=== PATIENT | male | born 1945 | race Caucasian/White ===

== ENCOUNTER → 2017-03-28 | Outpatient (CLI) | payer OTHER ==
--- NOTE | ~2017-03-28 | P ---
[facility] [place] [place] [address] PROCEDURE REPORT Name: NASHCARLOSMARY Black Room #: [facility] [id number] Admission: 03/28/17 Attend Phys: Shaw Souza MD Discharge: Date of : 49 Report #: [id number] THIS REPORT FOR: //name// CC: SEA Souza BRIEF HISTORY: The patient is a 71-year-old male with a history of colon polyps. Last colonoscopy was 10 years ago. PREOPERATIVE DIAGNOSIS: History of colon polyps. POSTOPERATIVE DIAGNOSES: 1. Diminutive polyp, proximal transverse colon. 2. Sigmoid diverticulosis coli. 3. Small internal hemorrhoids. MEDICATIONS: Deep sedation with propofol per anesthesia. SPECIMEN: Polyp from proximal transverse colon polyp. ESTIMATED BLOOD LOSS: 3 mL. PROCEDURE: Colonoscopy to cecum and terminal ileum with biopsy. FINDINGS: Prior to propofol sedation, procedure of colonoscopy discussed with the patient as well as potential risks and its complications. He indicates he understands and desires to proceed. DESCRIPTION OF PROCEDURE: With the patient in left lateral decubitus position, digital examination was completed which revealed no abnormalities. Subsequently, the Gnip video colonoscope was introduced into the rectum and advanced under direct vision to the cecum. Done with minimal difficulty. The cecum was identified by ileocecal valve and the appendiceal orifice. I was able to visualize the distal segment of the terminal ileum, which was inspected and noted to be unremarkable. At that point, the scope was slowly withdrawn and careful circumferential views obtained including retroflexing the scope in the ascending colon. Upon slow withdrawal of the scope, the prep was noted to be excellent. The mucosa was within normal limits with normal vascular pattern, normal light reflex. As we withdrew the scope, no abnormalities were noted until we reached the proximal transverse colon, at which point a diminutive polyp was seen and removed by biopsy. Scope was further withdrawn and no additional abnormalities were seen until we reached the sigmoid colon, it was noted have mild sigmoid diverticular disease. Scope was withdrawn in the rectum, no abnormalities were seen. Upon retroflexion, small hemorrhoids were seen. Scope was withdrawn and the patient tolerated the procedure well. [facility] [address] [place] [address] PROCEDURE REPORT Name: PERANTONINOJaviSTEPHANY I Room #: REG [facility] Dirk.#: [id number] Admission: 03/28/17 Attend Phys: Shaw Souza MD Discharge: Date of : 49 Report #: [id number] CONDITION OF THE PATIENT UPON DISCHARGE: Following procedure, the patient drowsy, aroused, conversant and will be discharged to home when fully ambulatory. INSTRUCTIONS TO THE PATIENT AND FAMILY AT THE TIME OF DISCHARGE: One small polyp identified and removed as described. We will follow up on the path and make further recommendations. If the polyp is an adenoma, he should return in 5 years; if it is not adenoma, 10 years would be indicated. Last colonoscopy was 10 years ago. Withdrawal time from the cecum was 12 minutes and 31 second. <ELECTRONICALLY SIGNED> By: Shaw Souza MD 03/28/17 1742 [id number] Shaw Souza MD /nt
--- NOTE | ~2017-03-28 | S ---
[facility] [address] [place] [address] SURGICAL PATH RPT PROCEDURE Name: DEANA CAO I Room #: [facility] M.Eric.#: [id number] Admission: 03/28/17 Date of : 49 Discharge: Report #: [id number] Path Case #: [id number] PATHOLOGY REPORT COLLECTION DATE: 03/28/2017 RECEIVED DATE: 03/28/2017 SUBMITTING PHYS: Dr. Shaw Souza OTHER PHYS: Dr. Jerry Armstrong SPECIMEN(S) RECEIVED: A.Proximal transverse colon polyp * * * * * * * * * * * * FINAL DIAGNOSIS: "Proximal transverse colon polyp," biopsy: - Colonic mucosa with focal adenomatous change, most consistent with tubular adenoma; no high-grade dysplasia. - Prominent reactive appearing lymphoid aggregate also present. (CLW:; 03/30/2017) PATHOLOGIST: Neha Gallegos M.D. REPORT ELECTRONICALLY SIGNED BY: Neha Gallegos M.D. DATE/TIME: 03/30/2017 15:12 * * * * * * * * * * * * GROSS PATHOLOGY: Received in formalin labeled "Deana Cao I, polyp at proximal transverse colon," are 3 segments of weaver soft tissue measuring 1.2 x 0.2 x 0.2 cm in aggregate dimensions and ranging from 0.1 to 0.8 cm in maximum dimension. The specimen is submitted entirely in cassette A1. (JOSE C; 03/29/2017) CLINICAL HISTORY: History of polyps, colon polyps, diverticulosis, hemorrhoids INITIAL CPT CODE(S): A; 18155 Professional services performed by [facility] at [facility] [address], [place] [address] Technical services performed by [facility] at [address] [place] [address], [address] [address]. [facility] [address] [place] [address] SURGICAL PATH RPT PROCEDURE Name: DEANA CAO I Room #: REG [facility] Marie#: [id number] Admission: 03/28/17 Date of : 49 Discharge: Report #: [id number] Path Case #: [id number] [facility] [address] [address] PHONE: [phone] DIRECTOR: Aguila Davies M.D. * * * END OF REPORT * * *
== END | disposition home or self-care (01) ==
LOC: GI 07:57
DX: Z09 Encounter for follow-up examination after completed treatment for conditions other than malignant neoplasm (principal); Z87.19 Personal history of other diseases of the digestive system; D12.3 Benign neoplasm of transverse colon; K57.30 Diverticulosis of large intestine without perforation or abscess without bleeding; K64.8 Other hemorrhoids
CPT/HCPCS: 62110; 62900